=== PATIENT | female | born 1945 | race Caucasian/White ===

== ENCOUNTER → 2020-09-17 12:17 | Outpatient (CLI) | payer MEDICARE, OTHER, SELFPAY ==
--- NOTE | ~2020-09-17 | XR_ITS ---
. EXAMINATION: XR hip LT 2V w AP pelvis EXAM DATE: 09/17/2020 12:38 INDICATION: M25.552 - Pain in left hip TECHNIQUE: Left hip frontal, 'frog leg' projections for interpretation. Frontal projection pelvis. There is no prior study for comparison. FINDINGS: Smooth left hip femoral head contour, no radiographic evidence of avascular necrosis. Ther e is mild symmetric bilateral hip primary osteoarthritis. There are no acute fractures or dislocation s identified. There is no subcutaneous gas. Calcifications in the pelvis are believed to be phlebol iths. There are no radiopaque foreign bodies. IMPRESSION: Mild symmetric bilateral hip osteoarthritis. Reviewed, dictated and finalized at location B. HING YOUNG
--- NOTE | ~2020-09-17 | XR_ITS ---
EXAMINATION: XR lumbar spine 2-3V EXAM DATE: 09/17/2020 12:38 INDICATION: Low back pain. TECHNIQUE: Lumber spine frontal, lateral, lateral L5-S1 projections for interpretation. There is no prior study for comparison. FINDINGS: There is moderate disc disease L2-3 and L3-4. There is about 1 cm of right lateral subluxa tion L3 on L4. There is moderate lumbar dextroscoliosis centered at L2-3. The vertebral bodies are al igned in the AP dimension. Overall moderate lumbar facet arthropathy. No spondylolysis suspected. Sac rum, sacroiliac joints, sacral arcuate lines are intact. Calcifications in the pelvis are believed to be phleboliths. IMPRESSION: 1. Moderate lumbar dextroscoliosis. 2. Moderate facet arthropathy and L2-L4 disc disease. Reviewed, dictated and finalized at location B. INSTALLER
== END ==
PROVIDERS: PCP Family Medicine; Visit Provider Physician Assistant
DX: M51.36 Other intervertebral disc degeneration, lumbar region (principal); M16.0 Bilateral primary osteoarthritis of hip
CPT/HCPCS: 72100; 73502

== ENCOUNTER 2020-09-24 15:57 | Outpatient (RCR) | payer MEDICARE, OTHER, SELFPAY ==
--- NOTE | 2020-09-25 07:37 | PTOPEVAL ---
Thank you for referring Sparkle Amaya to [facility].? The patient is scheduled to be seen for therapy? __2__x/week for 8 visits. Please review, sign, date and return this plan of care JULIA. I agree with and certify that the following plan of care is medically necessary. Referring Physician Date Admitting Provider: Attending Provider: Sebastian Lowry PA-C Referring Provider: *PT Outpatient Evaluation Start: 09/24/20 16:07 Freq: Status: Active Protocol: Document 09/24/20 16:07 RAFAL (Rec: 09/24/20 16:44 RAFAL [id number]) Evaluation Information Problem Diagnosis lumbago, sciatica Onset 08/06/20 Subjective Information Pt. reports feeling back and Query Text:As Reported By Patient/ hip pain since the beginning Family of August. She reports she went to the chiropractor with noted relief. She reports she went to her family doctor for a second opinion. She received xray which revealed mild OA on the left hip and into the lumbar spine. She notes pain going down the left leg. she reports pain is most notable with walking and stairs. she reports that her goal is to decrease her leg and back pain. Prior Level of Function Activity Level (Last 3 Months) Occupation retired Hand Dominance Right Activity of Daily Living Ability Independent Indoor/Home Mobility Independent Community Mobility Independent Stairs Ability Independent Functional Cognition (Planning, Shopping Independent , Taking Medications) Cooking Yes Cleaning Yes Laundry Yes Shopping Yes Driving Yes Pain Assessment Pain Scale Pain Scale Used Numeric (1 - 10) Self Report Pain Assessment Left Lower Back Reported Pain Level 2 Pain Frequency Continuous Lowest Pain Intensity 2 Greatest Pain Intensity 2 Pain Aggravating Factors Lifting,Prolonged Position, Sitting,Stair Climbing,Walking Pain Score Pain Score 2: Self Report Interventions Used Interventions Used By Clinicians Heat,Ice Pain Relief Interventions Used By Chiropractic,Ultrasound Patient Cervical and Lumbar ROM Lumbar ROM Lumbar
== END 2020-10-17 10:22 | disposition home or self-care (01) ==
LOC: CHSPT 15:57
PROVIDERS: Visit Provider Physician Assistant
DX: M19.90 Unspecified osteoarthritis, unspecified site (principal); M54.42 Lumbago with sciatica, left side; M25.552 Pain in left hip
CPT/HCPCS: 97014; 97110; 97140; 97161; G0283

== ENCOUNTER → 2020-10-29 10:17 | Outpatient (CLI) | payer MEDICARE, OTHER, SELFPAY ==
--- NOTE | ~2020-10-29 | MR_ITS ---
EXAMINATION: MR lumbar spine wo con EXAM DATE: 10/29/2020 10:55 INDICATION: M54.9 - Dorsalgia, unspecified low back pain. Low back pain, bilateral leg pain. TECHNIQUE: Multi-sequential, multiplanar MR images of the lumbar spine were obtained without contrast . Sagittal T1, T2, T2 fat saturation images. Axial T2 weighted images. There is no prior study for comparison. FINDINGS: There is moderate upper lumbar dextroscoliosis. The conus medullaris terminates at the L1/2 level and has normal signal intensity and morphology. There is moderate disc disease L1-2 and L2-3, mild at the other thoracolumbar levels. There are no suspicious marrow signal abnormalities. 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 The vertebral bodies are aligned in the AP dimension. Renal lesions, imaged po rtions are consistent with cysts. Level by level evaluation: T12-L1: There is a mild diffuse disc bulge. Facet arthropathy: Mild. Neural foraminal stenosis: No stenosis. Central canal stenosis: No stenosis. L1-L2: There is a mild to moderate diffuse disc bulge. Facet arthropathy: Mild. Neural foraminal stenosis: Mild to moderate left. Central canal stenosis: No stenosis. L2-L3: There is a mild diffuse disc bulge. Facet arthropathy: Mild. Neural foraminal stenosis: Mild left. Central canal stenosis: No stenosis. L3-L4: There is a mild to moderate diffuse disc bulge. Facet arthropathy: Mild to moderate. Neural foraminal stenosis: Mild bilateral. Central canal stenosis: No stenosis. L4-L5: There is a mild diffuse disc bulge. Facet arthropathy: Mild to moderate. Neural foraminal stenosis: Mild to moderate right. Central canal stenosis: No stenosis. L5-S1: There is a mild diffuse disc bulge. Facet arthropathy: Mild to moderate right, mild left. Neural foraminal stenosis: No stenosis. Central canal stenosis: No stenosis. IMPRESSION: 1. Moderate lumbar dextroscoliosis. 2. Overall mild to moderate spondylosis. Reviewed, dictated and finalized at location B. X DEVELOPER
== END ==
PROVIDERS: PCP Family Medicine; Visit Provider Physician Assistant
DX: M47.896 Other spondylosis, lumbar region (principal)
CPT/HCPCS: 72148

== ENCOUNTER 2023-11-15 14:36 | Outpatient (RCR) | payer MEDICARE, OTHER, SELFPAY ==
--- NOTE | 2023-11-15 16:43 | OPREHPOC ---
Outpatient Therapy Plan of Care This is a Multidisciplinary Plan of Care that may contain components documented by all disciplines (PT, OT, and ST.) PT Problem 1 PT Problem #1 Knowledge Deficit PT Goal 1 Goal patient to demonstrate independence with HEP Target Visit 5 PT Problem 2 PT Problem #2 Pain PT Goal 1 Goal 1. Patient to report highest pain at 2/10 at L hip and low back Target Visit 10 PT Problem 3 PT Problem #3 Impaired Strength PT Goal 1 Goal 1. Patient to demonstrate 4+/5 B LE strength to return to prolonged ambulation without increase in pain for grocery shopping 2. Patient to demonstrate 4/5 core strength to return to picking up objects from floor to complete house hold tasks Target Visit 10 PT Problem 4 PT Problem #4 Impaired Functional Mobil PT Goal 1 Goal 1. Patient to report ability to stand for >30 min to completed dishes 2. Patient to report ability to corn picker objects from floor to with no increase in low back pain 3. Patient to score 20% improvement on LEFS Target Visit 10
--- NOTE | 2023-11-15 16:43 | PTOPEVAL1 ---
Assessment and note entered by Alessia Dorantes DPT Evaluation Information Assessment Status Evaluation Diagnosis low back pain, L hip pain Onset 11/12/23 Subjective Information Patient reports that she has had L sided low back pain and L hip pain that has been occurring for years but has gotten worse within the last few months. She reports she is getting injections in the L hip on 11/30/23 with another one in the back on 12/16/23. She reports ice helps to decrease pain . She reports that walking, standing, bending to slat pickler objects and changing directions all increase pain. She reports when she gets up in the mornings pain increases. Patient is retired but does complete house hold tasks. Reported Pain Level Pain Score 6,6: Self Report Assessment PT Clinical Summary Mrs. Amaya is a 78 year old female who presents to PT with L sided low back and hip pain. She demonstrates L anterior innominate rotation, decreased L hip strength, decreased core strength and impaired posture limiting her ability to slat pickler objects from the floor, standing to complete house hold tasks and ambulate prolonged distances. Patient would benefit from skilled PT to address impairments and return to PLOF. Plan of Care Interventions Electrical Stimulation,Gait Training,Hot Pack/Cold Pack,Manual Therapy,Mechanical Traction,Neuro Re- education,Patient/Caregiver Educati,Therapeutic Activities,Therapeutic Exercise PT Services Indicated Yes Treatment Frequency and 2x weekly for 10 visits Duration These treatments will address the objective and functional deficits as defined above. The patient will be advanced safely and appropriately in order for the patient to progress towards his/her prior level of function. Additional exercises will be introduced and as well as a comprehensive home exercise program upon discharge, if needed, ?to ensure carryover of functional gains achieved in the clinic. This treatment plan has been reviewed and agreement upon by the patient.
--- NOTE | 2023-12-21 14:49 | OPREHPOC ---
Outpatient Therapy Plan of Care This is a Multidisciplinary Plan of Care that may contain components documented by all disciplines (PT, OT, and ST.) PT Problem 1 PT Problem #1 Knowledge Deficit PT Goal 1 Goal patient to demonstrate independence with HEP Target Visit 5 Progress Met PT Problem 2 PT Problem #2 Pain PT Goal 1 Goal 1. Patient to report highest pain at 2/10 at L hip and low back Target Visit 10 Progress Not Met PT Problem 3 PT Problem #3 Impaired Strength PT Goal 1 Goal 1. Patient to demonstrate 4+/5 B LE strength to return to prolonged ambulation without increase in pain for grocery shopping 2. Patient to demonstrate 4/5 core strength to return to picking up objects from floor to complete house hold tasks Target Visit 10 Progress Partially Met PT Problem 4 PT Problem #4 Impaired Functional Mobil PT Goal 1 Goal 1. Patient to report ability to stand for >30 min to completed dishes 2. Patient to report ability to sisal picker objects from floor to with no increase in low back pain 3. Patient to score 20% improvement on Back Index Target Visit 10 Progress Met
--- NOTE | 2023-12-21 14:50 | PTOPDC ---
Assessment and note entered by Alessia Dorantes DPT Evaluation Information Assessment Status Re-evaluation Diagnosis low back pain, L hip pain Onset 11/12/23 Subjective Information patient reports that since start of PT her pain has significantly improved. she reports she has had one injection in the hip. she reports she was supposed to have one in her back but it was not approved by insurance. she reports pain is less when waking up and no longer has issues sleeping. she reports she is able to stand for 30-45 min. she reports she is still cautious with bending to scrap picker objects. she reports she is independent with HEP Reported Pain Level Pain Score 1,0: Self Report Assessment PT Clinical Summary Ms. Amaya attended 10 visits of skilled PT with great progress towards goals. She has been able to sleep without pain and can get out of bed without issues. She reports she is able to stand for 30-45 minutes without rest. She reports that since starting PT she is significantly improved. She is independent with HEP and is appropriate for DC at this time. Plan of Care PT Services Indicated No
== END 2023-12-21 20:00 | disposition home or self-care (01) ==
LOC: CHSPT 14:36
DX: M48.061 Spinal stenosis, lumbar region without neurogenic claudication (principal); M53.3 Sacrococcygeal disorders, not elsewhere classified; Q76.49 Other congenital malformations of spine, not associated with scoliosis
CPT/HCPCS: 97014; 97110; 97161; G0283

== ENCOUNTER 2025-06-06 15:00 | Outpatient (RCR) | payer MEDICARE, SELFPAY ==
--- NOTE | 2025-05-09 14:03 | OPREHPOC ---
Outpatient Therapy Plan of Care This is a Multidisciplinary Plan of Care that may contain components documented by all disciplines (PT, OT, and ST.) PT Problem 1 PT Problem #1 Knowledge Deficit PT Goal 1 Goal / Goal Update independent and compliant with HEP Target Visit 6 PT Problem 2 PT Problem #2 Pain PT Goal 1 Goal / Goal Update decrease pain reports to 3/10 or less at worst in the bilateral hands Target Visit 12 PT Goal 1 Goal / Goal Update 60lbs or better bilateral criminal analyst strength 5lbs or better bilateral eason criminal analyst pinch 4+/5 or better bilateral wrist flex strength Target Visit 12 PT Problem 4 PT Problem #4 Impaired Range of Motion PT Goal 1 Goal / Goal Update patient to display full fist formation of the L hand with improvements in MCP, PIP, and DIP flexion rom. Target Visit 12 PT Problem 5 PT Problem #5 Impaired Functional Mobility PT Goal 1 Goal / Goal Update quick dash to display 10% or less functional deficits patient to complete 9 hole peg board test in less than 20 seconds bilat patient to be able to put rings on 4/7 days per week or better Target Visit 12
--- NOTE | 2025-05-09 14:03 | PTOPEVAL1 ---
Assessment and note entered by JT File, PT Evaluation Information Assessment Status Evaluation Diagnosis bilateral hands Onset 05/07/25 Subjective Information patient reports she is unable to fully close and make a fist on the L hand. she reports she has swollen knuckles of the bilateral hands, most the long fingers. 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 she reports she has difficulty opening a water bottle or gatorade bottle. 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 she reports she has not yet dropped anything from her hands. she reports she does feel weaker all over. Reported Pain Level Pain Score 5,2: Self Report Assessment PT Clinical Summary mrs. francis presents to skilled PT services for evaluation and treatment of bilateral wrist and hand pain. she displays deficits in wrist/hand rom of the L more than the R side today. 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 continued skilled PT is indicated to improve her objective/ functional deficits and progress towards a return to her prior level functional activity performance /quality of life. Plan of Care Interventions Hot Pack/Cold Pack,Manual Therapy,Neuro Re- education,Patient/Caregiver Education,Therapeutic Activities,Therapeutic Exercise PT Services Indicated Yes Treatment Frequency and 3x weekly for 12 visits Duration These treatments will address the objective and functional deficits as defined above. The patient will be advanced safely and appropriately in order for the patient to progress towards his/her prior level of function. Additional exercises will be introduced and as well as a comprehensive home exercise program upon discharge, if needed, ?to ensure carryover of functional gains achieved in the clinic. This treatment plan has been reviewed and agreement upon by the patient.
--- NOTE | 2025-06-04 14:34 | OPREHPOC ---
Outpatient Therapy Plan of Care This is a Multidisciplinary Plan of Care that may contain components documented by all disciplines (PT, OT, and ST.) PT Problem 1 PT Problem #1 Knowledge Deficit PT Goal 1 Goal / Goal Update independent and compliant with HEP Target Visit 6 Progress Met PT Problem 2 PT Problem #2 Pain PT Goal 1 Goal / Goal Update decrease pain reports to 3/10 or less at worst in the bilateral hands Target Visit 12 Progress Not Met PT Goal 1 Goal / Goal Update 60lbs or better bilateral aviation metalsmith strength. not met 5lbs or better bilateral eason aviation metalsmith pinch. met 4+/5 or better bilateral wrist flex strength. not met Target Visit 12 Progress Partially Met PT Problem 4 PT Problem #4 Impaired Range of Motion PT Goal 1 Goal / Goal Update patient to display full fist formation of the L hand with improvements in MCP, PIP, and DIP flexion rom. Target Visit 12 PT Problem 5 PT Problem #5 Impaired Functional Mobility PT Goal 1 Goal / Goal Update quick dash to display 10% or less functional deficits patient to complete 9 hole peg board test in less than 20 seconds bilat patient to be able to put rings on 4/7 days per week or better Target Visit 12
--- NOTE | 2025-06-04 14:34 | PTOPPROGNS ---
Assessment and note entered by JT File, PT Evaluation Information Assessment Status Progress Diagnosis bilateral hands Onset 05/07/25 Subjective Information patient reports her fingers and hands hurt more today that they have in a while. she reports she was playing a lot of piano yesterday, and made salsa this morning. she reports they are aching a lot more today. she reports she still has difficulty with opening and closing jars and water bottles. Assessment PT Clinical Summary mrs. francis presents to skilled PT services for for her 10th skilled PT visit. 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 continued skilled PT is indicated to improve her remaining objective/functional deficits and return to her prior level functional activity performance/quality of life. Plan of Care Interventions Hot Pack/Cold Pack,Manual Therapy,Neuro Re- education,Patient/Caregiver Education,Therapeutic Activities,Therapeutic Exercise PT Services Indicated Yes Treatment Frequency and continue per initial POC Duration These treatments will address the objective and functional deficits as defined above. The patient will be advanced safely and appropriately in order for the patient to progress towards his/her prior level of function. Additional exercises will be introduced and as well as a comprehensive home exercise program upon discharge, if needed, ?to ensure carryover of functional gains achieved in the clinic. This treatment plan has been reviewed and agreement upon by the patient.
--- NOTE | 2025-06-08 15:57 | OPREHPOC ---
Outpatient Therapy Plan of Care This is a Multidisciplinary Plan of Care that may contain components documented by all disciplines (PT, OT, and ST.) PT Problem 1 PT Problem #1 Knowledge Deficit PT Goal 1 Goal / Goal Update independent and compliant with HEP Target Visit 6 Progress Met PT Problem 2 PT Problem #2 Pain PT Goal 1 Goal / Goal Update decrease pain reports to 3/10 or less at worst in the bilateral hands Target Visit 12 Progress Not Met PT Goal 1 Goal / Goal Update 60lbs or better bilateral interactive art director strength. not met 5lbs or better bilateral eason interactive art director pinch. met 4+/5 or better bilateral wrist flex strength. met Target Visit 12 Progress Partially Met PT Problem 4 PT Problem #4 Impaired Range of Motion PT Goal 1 Goal / Goal Update patient to display full fist formation of the L hand with improvements in MCP, PIP, and DIP flexion rom. Target Visit 12 Progress Met PT Problem 5 PT Problem #5 Impaired Functional Mobility PT Goal 1 Goal / Goal Update quick dash to display 10% or less functional deficits patient to complete 9 hole peg board test in less than 20 seconds bilat -not met patient to be able to put rings on 4/7 days per week or better Target Visit 12 Progress Not Met
--- NOTE | 2025-06-08 15:58 | PTOPDC ---
Assessment and note entered by Jess Aguilar, PT Evaluation Information Assessment Status Discharge Diagnosis bilateral hands Onset 05/07/25 Subjective Information Sparkle presents today for her final PT visit and she states she feels ready to discharge. She reports her pain is around a 5/10 today and she reports feeling like she's made some progress in PT. She notes she's able to open jars and perform fine motor tasks more easily with her hands. She has been independent with her HEP and plans to continue her exercises to maintain her progress. Reported Pain Level Pain Score 5,5: Self Report Assessment PT Clinical Summary Mrs. Amaya has attended 12 skilled PT visits addressing bilateral hand pain and decline in functional use due to arthritis. Since beginning PT she notes improved ability to use her hands to open jars and perform fine motor tasks as well as improved flexibility. She demonstrates improved wrist strength and the ability to make a full fist with PIP, DIP and thumb ROM bilaterally. She has been independent with her HEP and feels like she can manage her pain and mobility on her own from now own, therefore she will discharge from skilled PT this date. Plan of Care PT Services Indicated No
== END 2025-08-07 23:59 | disposition home or self-care (01) ==
LOC: CHSPT 15:00
PROVIDERS: Visit Provider Internal Medicine Rheumatology
DX: M05.79 Rheumatoid arthritis with rheumatoid factor of multiple sites without organ or systems involvement (principal); M79.641 Pain in right hand; M79.642 Pain in left hand
CPT/HCPCS: 97110; 97140; 97161

== ENCOUNTER 2025-07-08 13:56 | Emergency (ER) | payer MEDICARE, SELFPAY ==
[2025-07-08] VITALS (8 sets, daily range): BP systolic 100–147; BP diastolic 56–70; PULSE 61–70; RESP 13–20; TEMP 36.4; O2SAT 97–100
--- NOTE | ~2025-07-08 | CT_ITS ---
EXAMINATION: CT brain wo marce, 07/08/2025 14:26 PHARMACY CUSTOMER CARE SPECIALIST HISTORY: Onset today, dizziness/ anterior headache/ nausea/ vomiting. COMPARISON: No comparisons available. Technique: Axial images obtained of the brain without contrast. One or more of the following dose reduction techniques were used: automated exposure control, adjustment of the mA and/or kV according to patient size, use of iterative reconstruction technique. Findings: No acute infarct or parenchymal hemorrhage. No abnormal mass or mass effect. No midline shift. No extra-axial fluid collections. No hydrocephalus. Mastoid air cells unremarkable. Sinuses and orbits unremarkable. No acute fracture. No significant facial or scalp soft tissue swelling evident. No radiopaque foreign body is seen. Impression: 1.No acute intracranial abnormality. Reviewed, dictated and finalized at location [facility]. [facility] CUSTOMER CARE SPECIALIST Impression: 1.No acute intracranial abnormality.
--- NOTE | ~2025-07-08 | XR_ITS ---
EXAMINATION: XR chest 1V portable COMPARISON: No comparisons available. HISTORY: Onset today, dizziness/ anterior headache/ nausea/ vomiting FINDINGS: The lungs are clear, no effusion. No pneumothorax. Heart is normal size. Mediastinal and hilar contours are within normal limits. Bony thorax no acute abnormality. Miscellaneous: Left Mediport terminates in the SVC Impression: No acute cardiopulmonary abnormality. Reviewed, dictated and finalized at location [facility]. [facility] Impression: No acute cardiopulmonary abnormality.
--- OUTSIDE RECORDS SUMMARY | 2025-07-08 14:01 | XMS_ITS | Clinical Summary ---
Author Organization [facility] Address [address] [place] [id number] Care Team Providers Care Substance Abuse Rn Name Role Phone Unknown, Notinfile Primary Care Provider Unavail able Allergies Active Allergy Reactions Criticality Noted Date Comments Hydroxychloroquine Swelling,Urticaria Medium Oxycodone Rash Medium 01/15/2021 Sulfa (Sulfonamide Antibiotics) Rash Medium 01/04 Medications atorvastatin (LIPITOR) 10 mg tablet 11/18/2020 Active metoprolol XL (TOPROL-XL) 25 mg extended release tablet 01/03/2021 Acti ve furosemide (LASIX) 20 mg tablet Take 1 tablet (20 mg total) by mouth every morning 01/07/2021 Active estradioL (ESTRACE) 0.5 mg tablet 12/25/2020 Active triamterene-hyd roCHLOROthiazid e 37.5-25 mg per capsule 01/03/2021 Active multivitamin with minerals (Daily Multivitamin-Mi nerals) tablet Take 1 tablet by mouth 3 (three) times a day with meals Active calcium carbonate-vitam in D3 (Oysco 500/D) 1,250mg (500mg elemental) - 5 mcg (200 units) per tablet Take 1 tablet by mouth daily Active folic acid (FOLVITE) 1 mg tablet Take 1 tablet (1 mg total) by mouth daily 03/11/2023 Active leflunomide (ARAVA) 20 mg tablet 09/19/2023 Active LORazepam (ATIVAN) 0.5 mg tablet TAKE 1 TABLET BY MOUTH NEEDED FOR ANXIETY Active Active Problems Problem Noted Date Diagnosed Date Spinal stenosis of lumbar re gion without neurogenic claudication 01/15/2021 Radiculopathy, lumbosacral region 01/15/2021 Lumbosacral spondylosis without myelopathy 01/15 Chronic bilateral low back pain with right-sided sciatica 01/15/2021 Sacroiliitis 01/15/2021 Surgical History Surgery Date Site/Laterality Comments IR INJECTION ARTHROGRAM SI J OINT LEFT INCLUDES IMAGING GUIDANCE 11/30/2023 Left US ABDOMEN COMPLETE W LIVER DOPPLER (C) 01/20/2024 R ight IR INJECTION ARTHROGRAM SI J OINT LEFT INCLUDES IMAGING GUIDANCE 03/14/2024 Left Medical History Medical History Date Comments Arthritis Hypercholesteremia Hypertension Migraines Rheumatoid arthritis (HCC) Allergic rhinitis Social History Tobacco Use Types Packs/Day Years Used Date Smoking Tobacco: Never Smokeless Tobacco: Never Tobacco Cessation:Counseling Given: Not Answered AUDIT-C Answer Date Recorded Q1: How often do you have a drink containing alc ohol? 2-3 times a week 11/09/2023 Q2: How many drinks containi ng alcohol do you have on a typical day when you are drinking? 1 or 2 11/09/2023 Frequency of Binge Drinking Not on file 01/2024 Personal Safety Answer Date Recorded Have you ever been in or are you currently in a harmful physical or emotional relationship or is someone making you feel afraid or unsafe? Denies 03/14/2024 Comments No Sex and Gender Information Value Date Recorded Sex Assigned at Not on file Legal Sex Female 9:55 AM CDT Gender Identity Not on file Sexual Orientation Not on file Last Filed Vital Signs Vital Sign Reading Time Taken Comments Blood Pressure 168/87 03/14/2024 10:24 AM CDT Pulse 66 03/14/2024 10:24 AM CDT Temperature 36.4 C (97.5 F) 03/03/2021 10:15 AM CDT Respiratory Rate 20 03/14/2024 10:24 AM CDT Oxygen Saturation 98% 03/14/2024 10:24 AM CDT Inhaled Oxygen Concentration - - Weight 75.3 kg (166 lb) 11/09/2023 1:54 PM [employer] Height 160 cm (5' 3) 11/09/2023 1:54 PM [employer] Body Mass Index 29.41 11/09/2023 1:54 PM [employer] Plan of Treatment Health Maintenance Due Date Last Done Comments Depression Screening 1945 Hepatitis C Screening 1945 Hepatitis B Screening 1964 Pneumococcal vaccine 65+ (1 of 1 - PCV) 1996 Zoster Vaccine (1 of 2) 1996 Well Visit 65+ 2011 DTaP/Tdap/Td Vaccine (1 - Tdap) 02/03/2020 0 Fall Risk Assessment 03/14/2025 03/14/2024 Influenza Vaccine (#1) 2025 06/30/2018, 2012 Osteoporosis Screening-Bone Density Scan 11/16/2025 11/17/2023 Procedures Procedure Name Priority Date/Time Associated Diagnosis Comments DEXA AXIAL SKELETON BONE DENSITY 1 OR MORE SITES Schedule Routine, Read Routine (OP Routine) 11/17/2023 2:24 PM CDT Spinal stenosis of lumbar region without neurogenic claudication Spinal deformity Degenerative disc disease, lumbar Age-related osteoporosis without current pathological fracture from Last 3 Months or Most Recently Relevant to Health Maintenance Results * DEXA Axial Skeleton Bone Density Multi Site (11/17/2023 2:24 PM CDT) Anatomical Region Laterality Modality Body N/A Digital Radiogra phy 11/17/2023 3:03 PM CDT Impressions 11/17/2023 3:08 PM CDT 1. The bone mineral density of the lumbar spine is normal. 2. The bone mineral density of the left femoral neck is mildly decreased. 3. The bone mineral density of the left total hip is normal. 4. Overall, the above findings are diagnostic of low bone mass (osteopenia) by WHO criteria. 5. Calculation of fracture risk using the FRAX model is not appropriate in certain settings. It was not performed in this patient because the patient met the following condition(s): Interfering medication General comments regarding interpretation of bone density measurements: A) In children, premenopausal woman and males under age 50 not at increased risk for fractures only Z-scores, not T-scores are used to indicate risk. A Z-score above -2.0 is defined as within the expected range for age and Z-score at or less than -2.0 is below the expected range for age. A Z-score below the expected range for age in a patient with recent fractures and/or chronic corticosteroid treatment is consistent with a diagnosis of osteoporosis. B) In post menopausal women and males over 50, comparison of the measured bone mineral density with the average value in young normal subjects (the T-score) has been found to be useful in assessing fracture risk. Fracture risk approximately doubles for each 1.0 standard deviation (SD) in individual's hip or spine bone mineral density is below the average value of young normal subjects. The World Health Organization (WHO) has defined T-scores of -1.0 to -2.5 as diagnostic of low bone mass (OSTEOPENIA), and T-scores of -2.5 or lower to be diagnostic of OSTEOPOROSIS, based on the site of lowest bone density. Note that there will be a change in reporting format and reference databases as patients move from the younger population (group A) to the older population (group B) The National Osteoporosis Foundation (www.nof.org) recommends adequate intake of calcium and vitamin D and regular weight-bearing exercise in all patients. They recommend pharmacologic treatment in postmenopausal women and men age 50 and older presenting with any of the followin) Osteoporosis, after appropriate evaluation to exclude secondary causes. 2) A hip or vertebral (clinical or radiographic) fracture, regardless of the bone density. 3) Low bone mass (Osteopenia) and one or more of: other prior fractures, secondary causes associated with high risk of fracture (such as glucocorticoid use or total immobilization), or computed high risk of fracture (10-yr probability of hip fracture >= 3% or a 10-yr probability of any major osteoporosis-related fracture >= 20% based on the [place].-adapted WHO algorithm), available at http://www.shef.ac.uk/FRAX). Dictated by: Ruba Andersen MD The radiology attending physician has personally reviewed this study, and had reviewed and/or edited this written report and agrees with it. Electronically signed by: Christin Bishop M.D. Narrative 11/17/2023 3:08 PM CDT BONE DENSITOMETRY OF THE SPINE AND HIP DATE OF STUDY: 11/17/2023 HISTORY: 78-year-old postmenopausal woman with a hysterectomy at age 46, loss of height, and rheumatoid arthritis. She is being treated with calcium and vitamin D. Evaluate bone mineral density. Additional risk factors for fracture: none. FINDINGS (SPINE): The bone mineral density of L1-L4 was assessed by dual-energy x-ray absorptiometry. The average bone mineral density within this region is 1.188 gm/sq-cm. This is 3.8 standard deviations above the mean of the average bone mineral density for age- and gender-matched subjects (the Z-score). It is 1.3 standard deviations above the mean peak bone mineral density in young adults (the T-score). FINDINGS (FEMORAL NECK): The bone mineral density of the left femoral neck was assessed by dual-energy x-ray absorptiometry. The average bone mineral density within the femoral neck region is 0.731 gm/sq-cm. This is 1.1 standard deviations above the mean of the average bone mineral density for age- and gender-matched subjects (the Z-score). It is 1.1 standard deviations below the mean peak bone mineral density in young adults (the T-score). FINDINGS (TOTAL HIP): The bone mineral density of the left hip was assessed by dual-energy x-ray absorptiometry. The average bone mineral density within the total hip region is 0.814 gm/sq-cm. This is 0.8 standard deviations above the mean of the average bone mineral density for age- and gender-matched subjects (the Z-score). It is 1.0 standard deviations below the mean peak bone mineral density in young adults (the T-score). SUMMARY OF CURRENT RESULTS: Region BMD T-score Z-score AP Spine (L1-L4) 1.188 1.3 3.8 Femoral Neck (Left) 0.731 -1.1 1.1 Total Hip (Left) 0.814 -1.0 0.8 Procedure Note Christin Bishop MD - 11/17/2023 BONE DENSITOMETRY OF THE SPINE AND HIP DATE OF STUDY: 11/17/2023 HISTORY: 78-year-old postmenopausal woman with a hysterectomy at age 46, loss of height, and rheumatoid arthritis. She is being treated with calcium and vitamin D. Evaluate bone mineral density. Additional risk factors for fracture: none. FINDINGS (SPINE): The bone mineral density of L1-L4 was assessed by dual-energy x-ray absorptiometry. The average bone mineral density within this region is 1.188 gm/sq-cm. This is 3.8 standard deviations above the mean of the average bone mineral density for age- and gender-matched subjects (the Z-score). It is 1.3 standard deviations above the mean peak bone mineral density in young adults (the T-score). FINDINGS (FEMORAL NECK): The bone mineral density of the left femoral neck was assessed by dual-energy x-ray absorptiometry. The average bone mineral density within the femoral neck region is 0.731 gm/sq-cm. This is 1.1 standard deviations above the mean of the average bone mineral density for age- and gender-matched subjects (the Z-score). It is 1.1 standard deviations below the mean peak bone mineral density in young adults (the T-score). FINDINGS (TOTAL HIP): The bone mineral density of the left hip was assessed by dual-energy x-ray absorptiometry. The average bone mineral density within the total hip region is 0.814 gm/sq-cm. This is 0.8 standard deviations above the mean of the average bone mineral density for age- and gender-matched subjects (the Z-score). It is 1.0 standard deviations below the mean peak bone mineral density in young adults (the T-score). SUMMARY OF CURRENT RESULTS: Region BMD T-score Z-score AP Spine (L1-L4) 1.188 1.3 3.8 Femoral Neck (Left) 0.731 -1.1 1.1 Total Hip (Left) 0.814 -1.0 0.8 IMPRESSION: 1. The bone mineral density of the lumbar spine is normal. 2. The bone mineral density of the left femoral neck is mildly decreased. 3. The bone mineral density of the left total hip is normal. 4. Overall, the above findings are diagnostic of low bone mass (osteopenia) by WHO criteria. 5. Calculation of fracture risk using the FRAX model is not appropriate in certain settings. It was not performed in this patient because the patient met the following condition(s): Interfering medication General comments regarding interpretation of bone density measurements: A) In children, premenopausal woman and males under age 50 not at increased risk for fractures only Z-scores, not T-scores are used to indicate risk. A Z-score above -2.0 is defined as within the expected range for age and Z-score at or less than -2.0 is below the expected range for age. A Z-score below the expected range for age in a patient with recent fractures and/or chronic corticosteroid treatment is consistent with a diagnosis of osteoporosis. B) In post menopausal women and males over 50, comparison of the measured bone mineral density with the average value in young normal subjects (the T-score) has been found to be useful in assessing fracture risk. Fracture risk approximately doubles for each 1.0 standard deviation (SD) in individual's hip or spine bone mineral density is below the average value of young normal subjects. The World Health Organization (WHO) has defined T-scores of -1.0 to -2.5 as diagnostic of low bone mass (OSTEOPENIA), and T-scores of -2.5 or lower to be diagnostic of OSTEOPOROSIS, based on the site of lowest bone density. Note that there will be a change in reporting format and reference databases as patients move from the younger population (group A) to the older population (group B) The National Osteoporosis Foundation (www.nof.org) recommends adequate intake of calcium and vitamin D and regular weight-bearing exercise in all patients. They recommend pharmacologic treatment in postmenopausal women and men age 50 and older presenting with any of the followin) Osteoporosis, after appropriate evaluation to exclude secondary causes. 2) A hip or vertebral (clinical or radiographic) fracture, regardless of the bone density. 3) Low bone mass (Osteopenia) and one or more of: other prior fractures, secondary causes associated with high risk of fracture (such as glucocorticoid use or total immobilization), or computed high risk of fracture (10-yr probability of hip fracture >= 3% or a 10-yr probability of any major osteoporosis-related fracture >= 20% based on the [place].-adapted WHO algorithm), available at http://www.shef.ac.uk/FRAX). Dictated by: Ruba Andersen MD The radiology attending physician has personally reviewed this study, and had reviewed and/or edited this written report and agrees with it. Electronically signed by: Christin Bishop M.D. Arik Aguilar MD IMG DXA PROCEDURES F inal Result from Last 3 Months or Most Recently Relevant to Health Maintenance Insurance MEDICARE [facility] MEDIC[facility] Care Teams Substance Abuse Rn Relationship Specialty Start Date End Date Unknown, Notinfile PCP - General 01/15/21
--- OUTSIDE RECORDS SUMMARY | 2025-07-08 14:01 | XMS_ITS | Patient Health Record ---
Author Organization [facility] Address [address] [facility] [address] [place], [place] [id number] Care Team Providers Care Client Evaluator Name Role Phone DR. GABINO KURTZ Primary Care Provider Unavail able Gus Goodman Unavailable [phone] ALLERGIES Allergen (clinical drug ingredient) Drug/Non Drug Allergy documented on EMR Reaction Allergy Type Onset Date Status hydroxychloroquine hydroxychloroquine Unknown Drug Allergy Active sulfasalazine sulfaSALAzine hives Drug Allergy Active codeine codeine hives Drug Allergy Active REASON FOR REFERRAL No Information MEDICATIONS Medication SIG (Take, Route, Frequency, Duration) Notes Start Date End Date Status Triam/HCTZ 37.5mg/25mg 1 tab as directed Active furosemide 20 mg 1 tab(s) orally once a day for 30 day(s) Active leflunomide 20 mg 1 tab(s) orally once a day for 30 day(s) Active metoprolol 25 mg 1 tab(s) orally once a day for 30 day(s) Active estradiol 0.5 mg 1 tab(s) orally once a day for 30 day(s) Active atorvastatin 10 mg 1 tab(s) orally once a day for 30 day(s) Active Centrum Women's Therapeutic Multiple Vitamins with Minerals 1 tab(s) orally once a day for 30 day(s) Active PROBLEMS Problem Type ICD Code Onset Dates Problem Status W/U Status Risk SNOMED Code Notes Problem Rheumatoid arthritis involving multiple sites with positive rheumatoid factor (M05.79) Active confirmed Rheumatoid arthritis (83345726) Problem Encounter for long-term (current) use of other medications (Z79.899) Active confirmed Long-term curre nt use of drug therapy (489506492) Problem Primary generalized (osteo)arthriti s (M15.0) Active confirmed Primary generalised osteoarthritis (060122379) Problem Bilateral hand pain (M79.641) Active confirmed Pain in limb (78758983) Problem Bilateral ankle pain (M25.571) Active confirmed Arthralgia of the ankle and/or foot (459743917) Problem Bilateral foot pain (M79.671) Active confirmed Bilateral jessica t pain ([id number] 2) PLAN OF TREATMENT Pending Test Test Name Order Date Uric Acid, Serum 06/09/2023 Creatinine, Serum 06/09/2023 CBC With Differential/Platelet Sed Rate - Westergren 06/09/2023 Rheumatoid Arthritis Factor 06/09/2023 C-Reactive Protein, Quant 06/09/2023 EMILY,transfer serum,rm temp 06/09/2023 CCP IgG Antibodies 06/09/2023 Hepatic Function Panel (7) 06/09/2023 URINALYSIS, COMPLETE 06/09/2023 SPEPW/Interpretation w/reflex 06/09/2023 ANCA Panel w/MPO/PR3 w/reflex to titer 1 TPMT 06/09/2023 Lab slip given 06/09/2023 eta 14.3.3 protein serum rm temp 023 Insurance Providers Payer Name Payer Address Payer Phone Subscriber Number Group Number Insured Name Patient Relationship to Insured Coverage Start Date Coverage End Date MEDICARE [address] [address] [place] [phone] [id number] Sparkle Garcia ch Self - patient is the insured 3 [employer] [address] [place] [id number] Sparkle Garcia ch Self - patient is the insured 3 MEDICAL (GENERAL) HISTORY Medical History History ICD Code bruises easily migraine headache tension headaches sinus problems irregular heart beat poor circulation difficulty breathing heart murmur high blood pressure varicose veins Surgical History Surgery Date(Month/Year) hysterectomy 1979 breast biopsy 1989 appendectomy 1989 bunionectomy 2009 Hospitalization History Reason Date(Month/Year) wrist
--- OUTSIDE RECORDS SUMMARY | 2025-07-08 14:01 | XMS_ITS | Clinical Summary ---
Author Organization [facility] [employer] Address [address] [place] [address] Care Team Providers Care Controlled Atmospheric Furnace Brazer Name Role Phone Loreto Garza MD Primary Care Provider Unavaila ble Source Comments [facility] [employer],non-owned Affiliates and Associated Physician Practices is amultiple site organization consisting of ambulatory clinics and hospital sitesin [place], [place], [place] and [place]. This disclosure is being madepursuant to the Care Everywhere program and may not contain all information available regarding this patient. Last updated 18.[facility] [employer] Allergies Active Allergy Reactions Criticality Noted Date Comments Allergy Rash Medium 01/15/2021 Codeine Urticaria Medium 05/02/2025 Hydrocodone Rash Medium 05/02/2025 Hydroxychloroquine Swelling,Urticaria,Unknown Medium 1 2022 Latex Rash Medium 05/02/2025 Oxycodone Rash Medium 01/15/2021 Sulfa Drugs Unknown 05/02/2025 Sulfacetamide Urticaria Medium 08/04/2023 Sulfasalazine Urticaria Medium 05/02/2025 Medications * Be aware that medications may not be up to date on this document. Alwaysverify current medications with the patient. atorvastatin (Lipitor) 10 MG tablet 3 Active estradiol (Estrace) 0.5 MG tablet 3 Active folic acid (Folvite) 1 MG tablet Take 1 (one) tablet by mouth once daily 3 Active furosemide (Lasix) 20 MG tablet Take 1 (one) tablet by mouth once daily as needed 3 Active LORazepam (Ativan) 0.5 MG tablet Take 1 (one) tablet by mouth as needed FOR ANXIETY 2 Active metoprolol succinate XL 24hr (Toprol XL) 25 MG tablet 3 Active triamterene-hyd roCHLOROthiazid e (Dyazide) 37.5-25 MG capsule 3 Active multivitamin daily tablet Take 1 (one) tablet by mouth daily with food Active calcium-vitamin D (Os-Sidney 500 + D) 500-200 mg-unit tablet Take 1 (one) tablet by mouth once daily OTC 1000 Units Active citalopram (CeleXA) 20 MG tablet Take 1 (one) tablet by mouth once daily Active gabapentin (Neurontin) 100 MG capsule Take 1 (one) capsule by mouth at bedtime 5 Active hydrOXYzine HCl (Atarax) 25 MG tablet Take 1 (one) tablet by mouth 5 Active traMADol (Ultram) 50 MG tablet Take by mouth every 6 hours as needed 5 Active leflunomide (Arava) 20 MG tabletIndicatio ns:Rheu arthritis w rheu factor [facility] site w/o org/sys involv (HCC) One tablet by mouth Wednesday and Wednesday 12 tablet 3 5 Active Active Problems Problem Noted Date Diagnosed Date Rheumatoid arthritis of [facility] without rheumatoid factor 10/02/2024 Encounters Date Type Department Care Team Description 05/17/2025 Telephone [facility] - Rheumatology [address] [address] Gus Porter MD Physical Therapy 05/03/2025 Results Follow-Up [facility] - Rheumatology [address] [place] [address] Gus Porter MD 05/02/2025 3:00 PM CDT Office Visit [facility] - Rheumatology [address] [place] [address] Gus Porter MD Rheu arthritis w rheu factor [facility] site w/o org/sys involv (HCC) (Primary Dx); Encounter for long-term (current) use of high-risk medication; Immunosuppression (HCC); PRISCILA positive; Bilateral hand pain from Last 3 Months Family History Medical History Relation Name Comments Arthritis - Rheumatoid Brother Seizures Brother Heart Failure Father Arthritis - Osteo Mother Arthritis - Rheumatoid Mother Cancer Mother Migraine Mother Seizures Mother Relation Name Status Comments Brother Father Mother Social History Tobacco Use Types Packs/Day Years Used Date Smoking Tobacco: Never Smokeless Tobacco: Never Tobacco Cessation:Counseling Given: Not Answered Alcohol Use Standard Drinks/Week Comments Yes 0 (1 standard drink = 0.6 oz pur e alcohol) 2 Drinks a week PHQ-2 Answer Date Recorded Patient Health Questionnaire-2 Score 0 10/02/2024 Comments Unknown Sex and Gender Information Value Date Recorded Sex Assigned at Not on file Legal Sex Female 3:35 PM CDT Gender Identity Not on file Sexual Orientation Not on file Last Filed Vital Signs Vital Sign Reading Time Taken Comments Blood Pressure 119/71 05/02/2025 2:42 PM CDT Pulse 72 05/02/2025 2:42 PM CDT Temperature 36.4 C (97.5 F) 05/02/2025 2:42 PM CDT Respiratory Rate - - Oxygen Saturation 97% 05/02/2025 2:42 PM CDT Inhaled Oxygen Concentration - - Weight 71.7 kg (158 lb) 05/02/2025 2:42 PM CDT Height 162.6 cm (5' 4) 06/14/2024 10:26 AM CDT Body Mass Index 27.12 06/14/2024 10:26 AM CDT Plan of Treatment Upcoming Encounters Date Type Department Care Team (Late st Contact Info) Description 09/17/2025 1:40 PM CULINARY ASSISTANT Office Visit [facility] [address] [place] [address] Gus Porter MD [address] [place] [address] Health Maintenance Due Date Last Done Comments MEDICARE AWV 12 MONTHS 1945 COVID-19 VACCINE (#1) 1951 DTAP/TDAP/TD VACCINES (1 - Tdap) 1965 PNEUMOCOCCAL VACCINE 50+ (1 of 2 - PCV) 1965 ZOSTER VACCINE (1 of 2) 1965 Respiratory Syncytial Virus (RSV) Vaccine Pt: or over 60 yrs (1 - 1-dose 75+ series) 2021 INFLUENZA VACCINE (#1) 2025 , 06/30/2018, 05/16/2013 DEPRESSION SCREENING Completed 10/02/2024, 06/14/2024 HEPATITIS C SCREENING Completed 10/02/2024 BONE DENSITY TESTING Completed 04/11/2025, 11/17/2023 HEPATITIS B VACCINE Aged Out No longe r eligible based on patient's age to complete this topic HIB VACCINE Aged Out No longer eligi ble based on patient's age to complete this topic HPV VACCINE Aged Out No longer eligi ble based on patient's age to complete this topic MENINGOCOCCAL (Group B) VACCINE SHARED DECISION-MAKING Aged Out No longer eligible based on patient's age to complete this topic MENINGOCOCCAL GROUPS A/C/Y/W VACCINE Aged Out No longer eligible b ased on patient's age to complete this topic Procedures Procedure Name Priority Date/Time Associated Diagnosis Comments BUN Routine 05/02/2025 3:39 PM CDT Rheu arthritis w rheu factor mult site w/o org/sys involv (HCC) Encounter for long-term (current) use of high-risk medication HEPATIC FUNCTION PANEL Routine 3:39 PM CDT Rheu arthritis w rheu factor mult site w/o org/sys involv (HCC) Encounter for long-term (current) use of high-risk medication ERYTHROCYTE SEDIMENTATION RATE Routine 05/02/2025 3:39 PM CDT Rheu arthritis w rheu factor mult site w/o org/sys involv (HCC) Encounter for long-term (current) use of high-risk medication CREATININE BLOOD Routine 05/02/2025 3:39 PM CDT Rheu arthritis w rheu factor mult site w/o org/sys involv (HCC) Encounter for long-term (current) use of high-risk medication CBC W AUTO DIFFERENTIAL Routine 05/02/2025 3:39 PM CDT Rheu arthritis w rheu factor mult site w/o org/sys involv (HCC) Encounter for long-term (current) use of high-risk medication C-REACTIVE PROTEIN Routine 05/02/2025 3: 39 PM CDT Rheu arthritis w rheu factor mult site w/o org/sys involv (HCC) Encounter for long-term (current) use of high-risk medication HEPATITIS SCREEN ACUTE ([facility]) Routine 10/02/2024 3:24 PM CULINARY ASSISTANT 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 factor Other low back pain Thrombocytopenia Encounter for long-term (current) use of high-risk medication Primary generalized (osteo)arthritis Cervicalgia History of right breast cancer Screening examination for pulmonary tuberculosis Need for hepatitis C screening test Special screening examination for viral disease Chronic fatigue, unspecified from Last 3 Months or Most Recently Relevant to Health Maintenance Results * C-REACTIVE PROTEIN (05/02/2025 3:39 PM CDT) C-Reactive Protein 0.30 <=0.50 mg/dL [facility] INSURANCE BILL Blood BLOOD SPECIMEN / Unknown 05/02/2025 3:39 PM CDT 05/02/2025 Narrative [facility] INSURANCE BILL - 05/02/2025 9:08 PM CDT Performed at: [address] [place] [id number] Software Publisher: Linda Rabago MD, Phone: [phone] us Gus Porter MD LAB - CHEMISTRY ORDERABLES Final Result [facility] INSURANCE BILL [address] [place] [address] * ERYTHROCYTE SEDIMENTATION RATE (05/02/2025 3:39 PM CDT) Erythrocyte Sedimentation Rate Westergren 6 0 - 30 MM/HR [facility] INSURANCE BILL Blood BLOOD SPECIMEN / Unknown 05/02/2025 3:39 PM CDT 05/02/2025 Narrative [facility] INSURANCE BILL - 05/02/2025 9:08 PM CDT Performed at: [address] - [address] [id number] Software Publisher: Linda Rabago MD, Phone: [phone] us Gus Porter MD LAB - HEMATOLOGY ORDERABLES Rissa l Result [facility] INSURANCE BILL [address] [place] [address] * (ABNORMAL) CBC WITH DIFFERENTIAL (05/02/2025 3:39 PM CDT) WBC 4.3 4.0 - 10.7 x10E9/L [facility] INSURANCE BILL RBC 4.32 3.90 - 5.20 x10E12/L [facility] INSURANCE BILL Hemoglobin 13.5 11.9 - 15.8 g/dL [facility] INSURANCE BILL Hematocrit 41.6 34.8 - 46.1 % [facility] INSURANCE BILL MCV 96.3 80.0 - 98.0 fL [facility] INSURANCE BILL MCH 31.3 26.7 - 33.6 pg [facility] INSURANCE BILL MCHC 32.5 31.7 - 36.3 g/dL [facility] INSURANCE BILL RDW 14.0 11.3 - 14.8 % [facility] INSURANCE BILL Platelet Count 108(L) 150 - 420 x10E9/L [facility] INSURANCE BILL Comment:MPV (CS) 9.7 fL 7.8- 11.4 Granulocytes % 63.6 41.0 - 74.0 % [facility] INSURANCE BILL Lymphocytes % 14.3(L) 17.0 - 47.0 % [facility] INSURANCE BILL Monocytes % 14.3(H) 3.0 - 11.0 % [facility] INSURANCE BILL Eosinophils % 6.8 0.0 - 7.0 % [facility] INSURANCE BILL Basophils % 0.5 0.0 - 1.6 % [facility] INSURANCE BILL Granulocytes Absolute 2.71 1.60 - 7.50 x10E9/L [facility] INSURANCE BILL Lymphocytes Absolute 0.61(L) 1.00 - 4.40 x10E9/L [facility] INSURANCE BILL Monocytes Absolute 0.61 0.15 - 1.00 x10E9/L [facility] INSURANCE BILL Eosinophils Absolute 0.29 0.00 - 0.60 x10E9/L [facility] INSURANCE BILL Basophils Absolute 0.02 0.00 - 0.13 x10E9/L [facility] INSURANCE BILL Immature Granulocytes 0.5 0.0 - 1.0 % [facility] INSURANCE BILL Blood BLOOD SPECIMEN / Unknown 05/02/2025 3:39 PM CDT 05/02/2025 Narrative [facility] INSURANCE BILL - 05/02/2025 9:08 PM CDT Performed at: [address] [place] [id number] Software Publisher: Linda Rabago MD, Phone: [phone] us Gus Porter MD LAB - HEMATOLOGY ORDERABLES Rissa l Result Performing Organization Address City/[facility]/ZIP Co de Phone Number [facility] INSURANCE BILL [address] [place] [address] * (ABNORMAL) HEPATIC FUNCTION PANEL (05/02/2025 3:39 PM CDT) [facility] Protein Total 6.3(L) 6.4 - 8.3 gm/dL [facility] INSURANCE BILL Albumin 3.7 3.1 - 4.5 gm/dL [facility] INSURANCE BILL Bilirubin Total 0.4 0.2 - 1.2 mg/dL [facility] INSURANCE BILL Bilirubin Direct 0.139 0.10 - 0.50 mg/dL [facility] INSURANCE BILL Alkaline Phosphatase 88 40 - 150 U/L [facility] INSURANCE BILL AST 29 10 - 48 U/L [facility] INSURANCE BILL ALT 17 6 - 57 U/L [facility] INSURANCE BILL Blood BLOOD SPECIMEN / Unknown 05/02/2025 3:39 PM CDT 05/02/2025 Narrative [facility] INSURANCE BILL - 05/02/2025 9:08 PM CDT Performed at: [address] [place] [id number] Software Publisher: Linda Rabago MD, Phone: [phone] us Gus Porter MD LAB - CHEMISTRY ORDERABLES Final Result [facility] INSURANCE BILL [address] [place] [address] * (ABNORMAL) CREATININE BLOOD (05/02/2025 3:39 PM CDT) Creatinine 1.03 0.57 - 1.11 mg/dL [facility] INSURANCE BILL eGFR by CKD-EPI 56(L) >=90 mL/min/1.7 3 m2 [facility] INSURANCE BILL Comment: Estimated Glomerular Filtration Rate (eGFR) calculated using the CKD-EPI Creatinine Equation (2020), per the National dney Foundation and [place] Society [employer] Nephrology recommend ations. Blood BLOOD SPECIMEN / Unknown 05/02/2025 3:39 PM CDT 05/02/2025 Narrative [facility] INSURANCE BILL - 05/02/2025 9:08 PM CDT Performed at: [address] [place] [id number] Software Publisher: Linda Rabago MD, Phone: [phone] us Gus Porter MD LAB - CHEMISTRY ORDERABLES Final Result Performing Organization Address [facility] Co de Phone Number [facility] INSURANCE BILL [address] [place] [address] * (ABNORMAL) BUN (05/02/2025 3:39 PM CDT) BUN 29(H) 7 - 26 mg/dL [facility] INSURANCE BILL Blood BLOOD SPECIMEN / Unknown 05/02/2025 3:39 PM CDT 05/02/2025 Narrative [facility] INSURANCE BILL - 05/02/2025 9:08 PM CDT Performed at: [address] [place] [address] [id number] Software Publisher: Linda Rabago MD, Phone: [phone] Gus Porter MD LAB - CHEMISTRY ORDERABLES Final Result Performing Organization Address City/[facility]/ZIP Co de Phone Number [facility] INSURANCE BILL [address] [place] [address] * HEPATITIS SCREEN ACUTE ([facility]) (10/02/2024 3:24 PM CULINARY ASSISTANT) Hepatitis A Virus Antibody IgM Negative Negative [facility] INSURANCE BILL Comment: A negative anti-HAV IgM result suggests no recent or current HAV infection. Hepatitis B Virus Surface Antigen Negative Negative [facility] INSURANCE BILL Hepatitis B Core Virus Antibody IgM Negative Negative [facility] INSURANCE BILL Hepatitis C Antibody Non Reactive Non Reactive [facility] INSURANCE BILL Comment: Performed at: [address] [id number] Software Publisher: Joshua Zepeda PhD, Phone: [phone] Interpretation Comment [facility] INSURANCE BILL Comment: Not infected with HCV unless early or acute infection is suspected (which may be delayed in an immunocompromised individual), or other evidence exists to indicate HCV infection. Blood BLOOD SPECIMEN / Unknown 10/02/2024 3:24 PM CULINARY ASSISTANT 10/02/2024 Narrative [facility] INSURANCE BILL - 10/03/2024 7:09 AM CULINARY ASSISTANT Performed at: [address] [id number] Software Publisher: Joshua Zepeda PhD, Phone: [phone] Gus Porter MD LAB - CHEMISTRY ORDERABLES Final Result [facility] INSURANCE BILL [address] [place] [address] from Last 3 Months or Most Recently Relevant to Health Maintenance Insurance MEDICARE [employer] Care Teams Controlled Atmospheric Furnace Brazer Relationship Specialty Start Date End Date Loreto Garza MD [address] [place] [address] PCP - General 05/02/25
--- NOTE | 2025-07-08 14:06 | ED_ITS ---
HPI - Dizziness General Chief Complaint: Dizziness Stated Complaint: syncope and emesis Time Seen by Provider: 07/08/25 14:05 Source: patient and family Mode of arrival: EMS Limitations: no limitations History of Present Illness HPI Narrative: Patient is a 79-year-old female with dizziness and a slight headache in the front area on and off since this morning at spiritism. She had a near syncopal event and decided that ER visit was appropriate at that time. She has associated nausea vomiting. No diarrhea. She had bilateral lower extremity weakness that has resolved at this time. No focal complaints. She had finished chemo and radiation in February of this year for breast cancer. She has been without problems since that event has ended in February. Patient has associated hypotension as well. Blood sugar was normal with EMS. MD elicited complaint: dizziness and near syncope Pertinent past history: other (Hypertension, hyperlipidemia, breast cancer/treated) Onset (ago): hour(s) (Started today this morning about 8 hours ago) Timing: gradual onset and intermittent Severity: mild Description: sense of movement and near-syncope Context: anxiety History of similar symptoms: No Exacerbating factors: nothing Relieving factors: nothing Associated symptoms: nausea, vomiting, malaise and weakness Related Data Home Medications ?Medication ?Instructions ?Recorded ?Confirmed ?Last Taken ?Type ascorbate calcium (vitamin C) 500 500 mg PO DAILY 09/0712/17/21 Unknown History mg tablet magnesium 200 mg tablet 200 mg PO DAILY 09/26/19 Unknown History zinc 50 mg tablet 25 mg PO DAILY 09/26/1912/05 Unknown History lysine 500 mg tablet (L-Lysine) 500 mg PO DAILY 12/17/21 Unknown History Allergies Allergy/AdvReac Type Severity Reaction Status Date / Time hydrocodone Allergy Intermediate RASH Verified 07/08/25 16:07 codeine Allergy Unknown Unknown Verified 07/08/25 16:07 erythromycin base Allergy Unknown Pt does Verified 07/08/25 16:07 not remember reaction latex Allergy Unknown Skin Verified 07/08/25 16:07 Reaction Sulfa (Sulfonamide Allergy Unknown Unknown Verified 07/08/25 16:07 Antibiotics) Review of Systems 2 Review of Systems: All systems reviewed & are unremarkable except as noted in HPI and below Constitutional: Constitutional: Reports no additional constitutional complaints Eyes: Eyes: Reports no additional eye complaints ENT: Reports system reviewed and no additional complaints, except as documented Cardiovascular: Cardiovascular: Reports no additional cardiovascular complaints Respiratory: Respiratory: Reports no additional respiratory complaints Gastrointestinal: Gastrointestinal: Reports no additional gastrointestinal complaints Genitourinary: Genitourinary: Reports no additional female genitourinary complaints Musculoskeletal: Musculoskeletal: Reports no additional musculoskeletal complaints Integumentary/Breasts: Skin/Breast: Reports system reviewed and no additional complaints, except as docu Neurologic: Reports system reviewed and no additional complaints, except as documented Psychiatric: Psychiatric: Reports no additional psychiatric complaints Endocrine: Endocrine: Reports no additional endocrine complaints Hematologic/Lymphatic: Hematologic/Lymphatic: Reports no additional hematologic/lymphatic complaints Allergic/Immunologic: Allergic/Immunologic: Reports no additional allergic/immunologic complaints [facility] Past Medical History Medical History (Updated 07/08/25 @ 16:10 by Jordan Parisi MD) Hammer toe of right foot surgery Surgical History Surgical History H/O breast biopsy History of bunionectomy H/O total hysterectomy Hx of appendectomy Family History Family History Father Acute myocardial infarction Mother Cerebrovascular accident Family history of malignant neoplasm of breast in first degree relative Other Family history of arthritis Social History Social History Alcohol intake: current Exam 2 Const: General: healthy appearing Nutritional Appearance: well nourished Orientation/consciousness: patient oriented x3 HENMT: Head: normal to inspection Ears: TM's normal bilaterally F richelle/Nose/Sinus: Normal external nose present Eyes: Conjunctivae: conjunctivae normal Pupils: Equal, round and reactive pupils present EOM: EOMs intact bilaterally Neck: Neck: normal visual inspection Chest: Chest palpation & inspection: normal inspection of the chest Resp: Effort & Inspection: normal respiratory effort and not labored A uscultation: clear to auscultation bilaterally and no crackles Cardio: Rate: regular rate Rhythm: regular rhythm Heart sounds: no murmurs GI: Inspection: non-distended GI Palp: Yes Soft to palpation and No Tenderness to palpation present (GI) Auscultation: normal bowel sounds : General: Yes bladder normal to palpation Back/Spine/Pelvis: Back: no CVA tenderness Skin: General skin exam: normal color Rashes: no rashes Wounds: no wounds Extrem: General: normal to inspection Course Vital Signs Vital signs: Vital Signs Temperature 36.4 C 07/08/25 13:56 Pulse Rate 66 07/08/25 13:56 Respiratory Rate 14 07/08/25 13:56 Blood Pressure 100/56 L 07/08/25 13:56 Pulse Oximetry 97 07/08/25 13:56 Oxygen Delivery Room Air 07/08/25 13:56 Temperature 36.4 C 07/08/25 13:56 Pulse Rate 62 07/08/25 15:25 Respiratory Rate 20 07/08/25 15:25 Blood Pressure 145/66 H 07/08/25 15:25 Pulse Oximetry 98 07/08/25 15:25 Oxygen Delivery Room Air 07/08/25 15:25 MDM - Dizziness MDM Narrative Medical decision making narrative: Patient is a 79-year-old female with dizziness and associated nausea vomiting for the past 8-10 hours. This started today. Check labs. CT head. Chest x- ray. She has associated hypotension which we are giving fluids. Patient had resolved dizziness. She did not want to proceed with a 2nd bag of fluid at this time. We decided to walk her around the floor and she did not get dizzy. She would like to go home at this time. We will discharge the patient. And some ways up at the front the Lab Data Attestation: I reviewed the patient's lab results. 07/08/25 14:22 07/08/25 14:22 Labs: Lab Results 07/08/25 07/08/25 Range/Units 14:22 15:17 WBC 3.8 L (4.8-10.8) K/mm3 RBC 3.88 L (4.20-5.40) M/mm3 Hgb 12.4 (11.7-13.8) g/dL Hct 38.0 (35.0-42.0) % MCV 97.9 (78.0-102.0) fL MCH 32.0 H (27.0-31.0) pg MCHC 32.6 (32-36) g/dL RDW 15.1 H (11.6-14.4) % Plt Count 104 L (150-420) K/mm3 MPV 9.2 (9.2-11.8) fl Immature Gran % (Auto) Not Reportable Neut % (Auto) Not Reportable Lymph % (Auto) Not Reportable [place] % (Auto) Not Reportable Eos % (Auto) Not Reportable Baso % (Auto) Not Reportable Lymph # (Auto) Not Reportable [place] # (Auto) Not Reportable Eos # (Auto) Not Reportable Baso # (Auto) Not Reportable Abs Immat Gran (auto) Not Reportable Absolute Neuts (auto) Not Reportable Absolute Nucleated RBC Not Reportable Total Counted 100 Neutrophils % (Manual) 66 (46-73) % Band Neutrophils % 0 (0-6) % Lymphocytes % (Manual) 18 (18-44) % Monocytes % (Manual) 10 H (3-9) % Eosinophils % (Manual) 6 (1-6) % Basophils % (Manual) 0 (0-1) % Nucleated RBC % Not Reportable Abs Neuts (Manual) 2.50 (1.3-6.7) K/mm3 Abs Lymphs (Manual) 0.68 L (1.1-4.5) K/mm3 Abs Monocytes (Manual) 0.38 (0.1-0.90) K/mm3 Absolute Eos (Manual) 0.22 (0.02-0.50) K/mm3 Abs Basophils (Manual) 0.00 (0-0.1) K/mm3 Platelet Estimate Decreased (Adequate) % Immature Plt Fraction 1.2 (1.0-7.0) % Schistocytes Not Reportable PT 10.6 (9.50-12.1) Seconds INR 1.0 APTT 22.5 L (23.9-30.70) Sec Sodium 140 (137-145) mmol/L Potassium 3.6 (3.4-5.0) mmol/L Chloride 99 (98-107) mmol/L Carbon Dioxide 31 H (22-30) mmol/L Anion Gap 10 (4-12) mmol/L BUN 33 H (7-17) mg/dL Creatinine 1.29 H (0.7-1.0) mg/dL Estim Creat Clear Calc 27 ml/min Estimated GFR 40 L (59 - ) Glucose 132 H (65-110) mg/dL Calculated Osmolality 299 H (285-295) mOsm/kg Lactic Acid 2.4 H (0.4-2.0) mmol/L Calcium 10.1 (8.4-10.2) mg/dL Total Bilirubin 0.8 (0.2-1.3) mg/dL AST 35 (14-36) U/L ALT 18 (6-35) U/L Alkaline Phosphatase 83 (38-126) U/L Troponin I < 0.012 (0.000-0.034) ng/mL NT-Pro-B Natriuret Pep 837 H (19.9-100) pg/mL Total Protein 8.1 (6.3-8.2) g/dL Albumin 4.5 (3.5-5.1) g/dL Urine Color Yellow (Yellow) Urine Appearance Sl cloudy A (Clear) Urine pH 5.5 (5.0-8.0) Ur Specific [place] 1.020 (1.010-1.020) Urine Protein Negative (Negative) Urine Glucose (UA) Negative (Negative) Urine Ketones Trace H (Negative) Ur Blood (Man) Negative (Negative) Urine Nitrate Negative (Negative) Urine Bilirubin Negative (Negative) Urine Urobilinogen 0.2 (0.2-1.0) mg/dL Leukocyte Esterase Rfl Negative (Negative) SANDRA/UL Urine RBC 0-2 (0-2) /hpf Urine WBC 0-3 (0-3) /hpf Ur Squamous Epith Cells Many H (Few) /hpf Amorphous Sediment Moderate H (None) Urine Bacteria 1+ H (None) /hpf Imaging Data Attestation: I personally reviewed and interpreted this imaging study as follows: Radiologist's impression: Chest x-rays negative for acute process CT scan of the head is negative for acute process ECG Data EKG #1: Attestation: I personally reviewed and interpreted this ECG as follows: ECG completion date: 07/08/25 ECG completion time: 14:54 EKG Interpretation: normal rate, sinus rhythm, no ectopy, non-specific ST changes, normal QRS, normal QT and left axis Discharge Plan Discharge Clinical Impression: Acute dehydration, JORDI (acute kidney injury), Dizziness Patient Disposition: Home Condition: Improved Instructions: Dehydration (ED), Dizziness (ED) Patient Language: Slovak Prescriptions: No Action ascorbate calcium (vitamin C) 500 mg tablet 500 mg PO DAILY magnesium 200 mg tablet 200 mg PO DAILY zinc 50 mg tablet 25 mg PO DAILY lysine [L-Lysine] 500 mg tablet 500 mg PO DAILY atorvastatin 10 mg tablet See Rx Instructions .ROUTE .COMPLEX Qty: 90 3RF Dose Instruction: TAKE 1 TABLET BY MOUTH DAILY Rx Instructions: TAKE 1 TABLET BY MOUTH DAILY estradiol 0.5 mg tablet See Rx Instructions .ROUTE .COMPLEX Qty: 90 3RF Dose Instruction: TAKE 1 TABLET BY MOUTH DAILY Rx Instructions: TAKE 1 TABLET BY MOUTH DAILY metoprolol succinate 25 mg tablet extended release 24 hr See Rx Instructions .ROUTE .COMPLEX Qty: 90 3RF Dose Instruction: TAKE 1 TABLET BY MOUTH DAILY Rx Instructions: TAKE 1 TABLET BY MOUTH DAILY triamterene-hydrochlorothiazid 37.5-25 mg capsule See Rx Instructions .ROUTE .COMPLEX Qty: 90 3RF Dose Instruction: TAKE 1 CAPSULE BY MOUTH DAILY Rx Instructions: TAKE 1 CAPSULE BY MOUTH DAILY Follow-up/Referrals: Greg,Loreto Cheng MD [Primary Care Provider, Unknown] Time of Disposition: 16:09
--- NOTE | 2025-07-08 14:06 | ECG_ITS ---
Test Date: 2025-07-08 14:16:02 Measurements Intervals [place] Rate: 69 P: 0 IA: 240 QRS: -9 QRSD: 90 T: 178 QT: 411 QTc: 442 Interpretive Statements SINUS RHYTHM WITH FIRST DEGREE AV BLOCK MODERATE VOLTAGE CRITERIA FOR LVH, CONSIDER NORMAL VARIANT [MEETS CRITERIA IN ONE OF: R(aVL), S(V1), R(V5), R(V5/V6)+S(V1)] MODERATE T-WAVE ABNORMALITY, CONSIDER ANTEROLATERAL ISCHEMIA [-0.1+ mV T-WAVE IN V3-V6] No previous ECG available for comparison Electronically Signed On 07-08-2025 14:22:46 [employer] by Shira Estrada M.D.
[2025-07-08 14:28] LABS: Hematocrit 38.0 % (35.0-42.0); Hemoglobin 12.4 g/dL (11.7-13.8); Immature Platelet Fraction Pct 1.2 % (1.0-7.0); Mean Corpuscular HGB Conc 32.6 g/dL (32-36); Mean Corpuscular Hemoglobin 32.0 pg (27.0-31.0); Mean Corpuscular Volume 97.9 fL (78.0-102.0); Platelet Count Result 104 K/mm3 (150-420); Red Blood Count 3.88 M/mm3 (4.20-5.40); White Blood Count 3.8 K/mm3 (4.8-10.8)
[2025-07-08] MEDS: SODIUM CHLORIDE 0.9% IV 1,000 ML 999 ML IV CONT (14:37)
[2025-07-08 14:38] LABS: Alanine Aminotransferase 18 U/L (6-35); Albumin Level 4.5 g/dL (3.5-5.1); Alkaline Phosphatase 83 U/L (38-126); Anion Gap 10 mmol/L (4-12); Aspartate Amino Transferase 35 U/L (14-36); Band Neutrophils Percent 0 % (0-6); Basophils Absolute Manual 0.00 K/mm3 (0-0.1); Basophils Percent Manual 0 % (0-1); Bilirubin,Total 0.8 mg/dL (0.2-1.3); Blood Urea Nitrogen 33 mg/dL (7-17); Calcium 10.1 mg/dL (8.4-10.2); Carbon Dioxide 31 mmol/L (22-30); Chloride 99 mmol/L (98-107); Eosinophils Absolute Manual 0.22 K/mm3 (0.02-0.50); Eosinophils Percent Manual 6 % (1-6); Estimated CRCL calculation 27 ml/min; Estimated Glomerular Filt Rate 40; Glucose 132 mg/dL (65-110); Lymphocytes Absolute Manual 0.68 K/mm3 (1.1-4.5); Lymphocytes Percent Manual 18 % (18-44); Monocytes Absolute Manual 0.38 K/mm3 (0.1-0.90); Monocytes Percent Manual 10 % (3-9); Neutrophils Absolute Manual 2.50 K/mm3 (1.3-6.7); Neutrophils Percent Manual 66 % (46-73); Osmolality Calculated 299 mOsm/kg (285-295); Potassium 3.6 mmol/L (3.4-5.0); Sodium 140 mmol/L (137-145); Total Cells Counted 100; Total Protein 8.1 g/dL (6.3-8.2)
[2025-07-08 14:40] LABS: INR 1.0; Partial Thromboplastin Time 22.5 Sec (23.9-30.70); Prothrombin Time 10.6 Seconds (9.50-12.1)
--- OUTSIDE RECORDS SUMMARY | 2025-07-08 14:45 | XMS_ITS | Clinical Summary ---
Author Organization [facility] Address [address] [place] [id number] Care Team Providers Care Regional Sales Engineer Name Role Phone Sherman Mcmillan MD Primary Care Provider [phone] Encounters Date Type Department Care Team Description 04/11/2025 9:21 AM CDT - 04/11/2025 11:59 PM CDT Hospital Encounter [facility] [address] [place] [address] Sherman Mcmillan MD Discharge Disposition: Home or Self Care (Routine Discharge) 04/11/2025 Travel from Last 3 Months Immunizations Immunization Administration Dates Next Due Arexvy Respiratory Syncytial Virus (RSV, adjuvanted) 0.5 mL, PF 07/12/2023 Fluzone High Dose (IIV, trivalent, 0.5mL) 2023 Fluzone High Dose - >Age 65 (Prefilled Syringe) 06/28/2023,06/03/2022,06/30/2021 Influenza (Generic) 06/30/2018 Influenza Adult (Generic) 05/16/2013 Td, Adsorbed, Preservative F ree, Adult Use, Lf Unspecified 02/02/2020 Social History Tobacco Use Types Packs/Day Years Used Date Smoking Tobacco: Never Smokeless Tobacco: Never Tobacco Cessation:Counseling Given: Not Answered Comments Unknown Sex and Gender Information Value Date Recorded Sex Assigned at Female 04/11/2025 9:18 AM CDT Legal Sex Female 5:55 PM 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 [employer] Gender Identity Not on file Sexual Orientation Not on file Plan of Treatment Health Maintenance Due Date Last Done Comments Hepatitis C 1963 Pneumococcal Vaccine: 50+ Years (1 of 1 - PCV) 1996 Zoster Vaccines (1 of 2) 1996 Annual Medicare Wellness Visit 2011 DTaP, Tdap and Td Vaccines (1 - Tdap) 02/03/2020 02/02/2020 COVID-19 Vaccine (8 - season) 2025 07/18/2024, 06/28/2023, 06/03/2022, Additional history exists Influenza Adult (#1) 2025 07/18/2024, 06/28/2023, 06/03/2022, Additional history exists RSV Immunization or 60+ Years Completed 07/12/2023 Dexa Scan (General) Completed 04/11/2025, 11/17/2023, 11/17/2023 Hepatitis A Vaccines Aged Out No long er eligible based on patient's age to complete this topic Meningococcal B Vaccine Aged Out No l onger eligible based on patient's age to complete this topic Meningococcal Vaccine Aged Out No asha risa eligible based on patient's age to complete this topic RSV Immunizations Under 20 Months Aged Out No longer eligible based on patient's age to complete this topic Procedures Procedure Name Priority Date/Time Associated Diagnosis Comments BONE DENSITY/DEXA Routine 04/11/2025 9:5 6 AM CDT Postmenopausal from Last 3 Months Results * BONE DENSITY/DEXA (04/11/2025 9:56 AM CDT) Anatomical Region Laterality Modality Bone Bone Density 04/11/2025 3:40 PM CDT Impressions 04/11/2025 3:42 PM CDT Impression: Normal BMD. Lowest T-score is -0.9. Fracture risk is low. Scoliosis with sclerotic degenerative changes in the spine can falsely elevate the BMD. Followup DEXA study in 2 yr. Ordered By: SHERMAN MCMILLAN Interpreted By: Jorge Hendrix MD, 04/11/2025 3:40 PM Narrative 04/11/2025 3:42 PM [address]T [address] [place] [address] Examination: DEXA Bone densitometry 04/11/2025 9:56 AM Clinical history: Postmenopausal female here for bone mineral density evaluation. Rheumatoid arthritis. Takes Fosamax and calcium. History of cancer and hysterectomy. Regularly consumes dairy products. This is a follow-up from: None Technique: DEXA bone minimal density evaluation was performed in the AP projection over the lumbar spine and over both hips in the AP projection utilizing standard imaging techniques. Assessment: The BMD measured at the AP spine L1-L4 is 1.169 g/cm2 with a T-score of 1.1 and a Z-Score of 3.7. Scoliosis with sclerotic degenerative changes in the spine can falsely elevate the BMD. The BMD measured at the femur total left is 0.832 g/cm2 with a T-score of -0.9 and a Z-Score of 1.1. Left femoral neck T-score is -0.9. The BMD measured at the femur total right is 0.851 g/cm2 with a T-score of -0.7 and a Z-Score of 1.2. Right femoral neck T-score is -0.7. The 10 year probability of major osteoporotic fracture is 14% and hip fracture 2.6%. Recommendations: All patients should ensure an adequate intake of dietary calcium and vitamin D. The NOF recommend adults under the age of 50 need 1000 mg of calcium and 400-800 IU of vitamin D daily. Effective therapy for the prevention and treatment of osteoporosis include biphosphonates. Follow-up: People with diagnosed cases of osteoporosis or at high risk for fracture should have regular bone mineral density test. For patients eligible for Medicare, routine testing is allowed once every 2 years. Testing frequency can be increased to one year for patients who have rapidly progressing disease, those who are receiving or discontinuing medical therapy to restore bone mass, or have additional risk factors. Based on these results, a followup exam is recommended in April 2027. Procedure Note Jorge Hendrix MD - 04/11/[address] [place] [address] Examination: DEXA Bone densitometry 04/11/2025 9:56 AM Clinical history: Postmenopausal female here for bone mineral densityevaluation. Rheumatoid arthritis. Takes Fosamax and calcium. History ofcancer and hysterectomy. Regularly consumes dairy products. This is a follow-up from: None Technique: DEXA bone minimal density evaluation was performed in the APprojection over the lumbar spine and over both hips in the AP projectionutilizing standard imaging techniques. Assessment: The BMD measured at the AP spine L1-L4 is 1.169 g/cm2 with a T-score of1.1 and a Z-Score of 3.7. Scoliosis with sclerotic degenerative changesin the spine can falsely elevate the BMD. The BMD measured at the femur total left is 0.832 g/cm2 with a T-score of-0.9 and a Z-Score of 1.1. Left femoral neck T-score is -0.9. The BMD measured at the femur total right is 0.851 g/cm2 with a T-score of-0.7 and a Z-Score of 1.2. Right femoral neck T-score is -0.7. The 10 year probability of major osteoporotic fracture is 14% and hipfracture 2.6%. Recommendations: All patients should ensure an adequate intake of dietary calcium andvitamin D. The NOF recommend adults under the age of 50 need 1000 mg ofcalcium and 400-800 IU of vitamin D daily. Effective therapy for theprevention and treatment of osteoporosis include biphosphonates. Follow-up: People with diagnosed cases of osteoporosis or at high risk for fractureshould have regular bone mineral density test. For patients eligible forMedicare, routine testing is allowed once every 2 years. Testing frequencycan be increased to one year for patients who have rapidly progressingdisease, those who are receiving or discontinuing medical therapy torestore bone mass, or have additional risk factors. Based on these results, a followup exam is recommended in April 2027. Impression: Normal BMD. Lowest T-score is -0.9. Fracture risk is low. Scoliosis with sclerotic degenerative changes in the spine can falselyelevate the BMD. Followup DEXA study in 2 yr. Ordered By: SHERMAN MCMILLAN Interpreted By: Jorge Hendrix MD, 04/11/2025 3:40 PM us Sherman Mcmillan MD DEXA Final Result from Last 3 Months Insurance MEDICARE [facility] Care Teams Regional Sales Engineer Relationship Specialty Start Date End Date Sherman Mcmillan MD [facility] [place] [address] PCP - General FAMILY PRACTICE 04/11/25
--- OUTSIDE RECORDS SUMMARY | 2025-07-08 14:45 | XMS_ITS | Clinical Summary ---
Author Organization [facility] [employer] Address [address] [place] [address] Care Team Providers Care Color Matcher Name Role Phone Loreto Garza MD Primary Care Provider Unavaila ble Source Comments [facility] [employer],non-owned Affiliates and Associated Physician Practices is amultiple site organization consisting of ambulatory clinics and hospital sitesin [place], [place], [place] and [place]. This disclosure is being madepursuant to the Care Everywhere program and may not contain all information available regarding this patient. Last updated 18.[facility] [employer] Allergies Active Allergy Reactions Criticality Noted Date [...] MG tabletIndicatio ns:Rheu arthritis w rheu factor [facility] w/o org/sys involv (HCC) One tablet by mouth Wednesday and Wednesday 12 tablet 3 5 Active Active Problems Problem Noted Date Diagnosed Date Rheumatoid arthritis of [facility] without rheumatoid factor 10/02/2024 Encounters Date Type Department Care Team Description 05/17/2025 Telephone [facility] - Rheumatology [address] [place] [address] Gus Porter MD Physical Therapy 05/03/2025 Results Follow-Up [facility] - Rheumatology [address] [place] [address] Gus Porter MD 05/02/2025 3:00 PM CDT Office Visit [facility] - Rheumatology [address] [place] [address] Gus Porter MD Rheu arthritis w rheu factor [facility] w/o org/sys involv (HCC) (Primary Dx); [...] st Contact Info) Description 09/17/2025 1:40 PM WAREHOUSE ANALYST Office Visit [facility] - Rheumatology [address] [place] [address] Gus Porter MD [address] [place] [address] Health Maintenance Due Date Last Done Comments [...] SCREEN ACUTE ([facility]) Routine 10/02/2024 3:24 PM WAREHOUSE ANALYST 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 [...] - 05/02/2025 9:08 PM CDT Performed at: [address] [place] [id number] Mail Distribution Clerk: Linda Rabago MD, Phone: [phone] us Gus Porter MD LAB - CHEMISTRY ORDERABLES Final Result [facility] INSURANCE BILL [address] [place] [address] * ERYTHROCYTE SEDIMENTATION RATE (05/02/2025 3:39 PM CDT) Erythrocyte Sedimentation Rate Westergren 6 0 - 30 MM/HR [facility] INSURANCE BILL Blood BLOOD SPECIMEN / Unknown 05/02/2025 3:39 PM CDT 05/02/2025 Narrative [facility] INSURANCE BILL - 05/02/2025 9:08 PM CDT Performed at: [address] [id number] Mail Distribution Clerk: Linda Rabago MD, Phone: [phone] us Gus Porter MD LAB - HEMATOLOGY ORDERABLES Rissa l Result [facility] INSURANCE BILL [address] [place] [address] * (ABNORMAL) CBC WITH DIFFERENTIAL (05/02/2025 3:39 [...] - 05/02/2025 9:08 PM CDT Performed at: [address] [place] [id number] Mail Distribution Clerk: Linda Rabago MD, Phone: [phone] us Gus Porter MD LAB - HEMATOLOGY ORDERABLES Rissa l Result Performing Organization Address City/[facility]/ZIP Co de Phone Number [facility] INSURANCE BILL [address] [place] [address] * (ABNORMAL) HEPATIC FUNCTION PANEL (05/02/2025 3:39 PM CDT) [facility] Protein Total 6.3(L) 6.4 - 8.3 [...] - 05/02/2025 9:08 PM CDT Performed at: [address] [place] [id number] Mail Distribution Clerk: Linda Rabago MD, Phone: [phone] us Gus Porter MD LAB - CHEMISTRY ORDERABLES Final Result [facility] INSURANCE BILL [address] [place] [address] * (ABNORMAL) CREATININE BLOOD (05/02/2025 3:39 PM CDT) Creatinine 1.03 0.57 - 1.11 mg/dL [facility] INSURANCE BILL eGFR by CKD-EPI 56(L) >=90 mL/min/1.7 3 m2 [facility] INSURANCE BILL Comment: Estimated Glomerular Filtration Rate (eGFR) calculated using the CKD-EPI Creatinine Equation (2020), per the National dney Foundation and [place] [employer] of Nephrology recommend ations. Blood BLOOD SPECIMEN / Unknown 05/02/2025 3:39 PM CDT 05/02/2025 Narrative [facility] INSURANCE BILL - 05/02/2025 9:08 PM CDT Performed at: [address] [place] [address] [id number] Mail Distribution Clerk: Linda Rabago MD, Phone: [phone] us Gus Porter MD LAB - CHEMISTRY ORDERABLES Final Result Performing Organization Address [facility] Co de Phone Number [facility] INSURANCE BILL [address] [place] [address] * (ABNORMAL) BUN (05/02/2025 3:39 PM CDT) BUN 29(H) 7 - 26 mg/dL [facility] INSURANCE BILL Blood BLOOD SPECIMEN / Unknown 05/02/2025 3:39 PM CDT 05/02/2025 Narrative [facility] INSURANCE BILL - 05/02/2025 9:08 PM CDT Performed at: [address] [place] [id number] Mail Distribution Clerk: Linda Rabago MD, Phone: [phone] Gus Porter MD LAB - CHEMISTRY ORDERABLES Final Result Performing Organization Address City/[facility]/ZIP Co de Phone Number [facility] INSURANCE BILL [address] [place] [address] * HEPATITIS SCREEN ACUTE ([facility]) (10/02/2024 3:24 PM WAREHOUSE ANALYST) Hepatitis A Virus Antibody IgM Negative Negative [facility] INSURANCE BILL Comment: A negative anti-HAV IgM result suggests no recent or current HAV infection. Hepatitis B Virus Surface Antigen Negative Negative [facility] INSURANCE BILL Hepatitis B Core Virus Antibody IgM Negative Negative [facility] INSURANCE BILL Hepatitis C Antibody Non Reactive Non Reactive [facility] INSURANCE BILL Comment: Performed at: [address] [id number] Mail Distribution Clerk: Joshua Zepeda PhD, Phone: [phone] Interpretation Comment [facility] INSURANCE BILL Comment: Not infected with HCV unless early or acute infection is suspected (which may be delayed in an immunocompromised individual), or other evidence exists to indicate HCV infection. Blood BLOOD SPECIMEN / Unknown 10/02/2024 3:24 PM WAREHOUSE ANALYST 10/02/2024 Narrative [facility] INSURANCE BILL - 10/03/2024 7:09 AM WAREHOUSE ANALYST Performed at: [address] [id number] Mail Distribution Clerk: Joshua Zepeda PhD, Phone: [phone] Gus Porter MD LAB - CHEMISTRY ORDERABLES Final Result [facility] INSURANCE BILL [address] [place] [address] from Last 3 Months or Most Recently Relevant to Health Maintenance Insurance MEDICARE [facility] Address: [facility] [id number] [place] [address] Care Teams Color Matcher Relationship Specialty Start Date End Date Loreto Garza MD [address] [place] [address] PCP - General 05/02/25
--- OUTSIDE RECORDS SUMMARY | 2025-07-08 14:45 | XMS_ITS | Clinical Summary ---
Author Organization [facility] Address [address] [place] [id number] Care Team Providers Care Set Up Inspector Name Role Phone Unknown, Notinfile Primary Care [...] 75.3 kg (166 lb) 11/09/2023 1:54 PM WEIGHT ANALYST Height 160 cm (5' 3) 11/09/2023 1:54 PM WEIGHT ANALYST Body Mass Index 29.41 11/09/2023 1:54 PM WEIGHT ANALYST Plan of Treatment Health Maintenance Due Date [...] Recently Relevant to Health Maintenance Insurance MEDICARE [facility] MEDICARE Care Teams Set Up Inspector Relationship Specialty Start Date End Date Unknown, Notinfile PCP - General 01/15/21
[2025-07-08 14:50] LABS: Troponin I < 0.012 ng/mL (0.000-0.034)
[2025-07-08 14:59] LABS: NT Pro B Type Natriuretic Pept 837 pg/mL (19.9-100)
[2025-07-08 15:25] LABS: Add Urine Microscopic? YES; Appearance Urine Sl Cloudy (Clear); Glucose Urine UA Negative (Negative); Leukocyte Esterase Ur Negative LEU/UL (Negative); Nitrate Urine Negative (Negative); Specific Grav Ur 1.020 (1.010-1.020)
--- NOTE | 2025-07-08 16:06 | PC.NURSE ---
pt ambulated in hallway from room #3 to nurses station without complaint of dizziness. return to room.
--- NOTE | 2025-07-12 13:46 | PC.NURSE ---
blood culture, preliminary, no growth
--- NOTE | 2025-07-13 13:11 | PC.NURSE ---
blood preliminary no growth
--- NOTE | 2025-07-16 13:47 | PC.NURSE ---
FINAL BLOOD CULTURE RESULTS: NO GROWTH IN 5 DAYS. MD BRIDGET STATES THERE ARE NO CHANGES IN THE COURSE OF TREATMENT.
== END 2025-07-08 16:18 | disposition home or self-care (01) ==
PROVIDERS: Emergency Provider Emergency Medicine; PCP Family Medicine
DX: E86.0 Dehydration (principal); N17.9 Acute kidney failure, unspecified; R42 Dizziness and giddiness; I10 Essential (primary) hypertension; E78.5 Hyperlipidemia, unspecified; Z85.3 Personal history of malignant neoplasm of breast
CPT/HCPCS: 36415; 70450; 71045; 80053; 81001; 83605; 83880; 84484; 85025; 85055; 85610; 85730; 87040; 93005; 96360; 99284; J7030